=== PATIENT | female | born 1955 | race Caucasian/White ===

== ENCOUNTER → 2020-11-03 15:12 | Outpatient (CLI) | payer BC, SELFPAY ==
--- NOTE | ~2020-11-03 | XR_ITS ---
XR shoulder LT min 2V DATE: 11/03/2020 15:43 INDICATION: Fall. Left shoulder pain. TECHNIQUE: 4 views COMPARISON: 11/09/2006 left shoulder FINDINGS: There is osteopenia. No fracture, dislocation, periosteal reaction or bone destruction. Normal alignment at the acromiocla vicular and glenohumeral joints. No abnormal left shoulder soft tissue calcification. Aortic arch calcification. Degenerative spurring of the mid to lower thoracic spine. IMPRESSION: Osteopenia Reviewed, dictated and finalized at location B. IMPRESSION: Osteopenia
== END ==
PROVIDERS: PCP Family Medicine Adolescent Medicine; Visit Provider Family Medicine Adolescent Medicine
DX: M85.812 Other specified disorders of bone density and structure, left shoulder (principal)
CPT/HCPCS: 73030

== ENCOUNTER → 2021-09-03 09:22 | Outpatient (CLI) | payer BC, SELFPAY ==
--- NOTE | ~2021-09-03 | XR_ITS ---
EXAMINATION: XR elbow LT 2V DATE: 09/03/2021 09:43 INDICATION: Left elbow pain TECHNIQUE: Anteroposterior and lateral views of the left elbow were obtained. COMPARISON: None. FINDINGS: Alignment is normal. No fracture or joint effusion. Mild osteoarthritis with mild nonuniform joint sp ming narrowing at the ulnotrochlear and radiocapitellar articulations. Mild soft tissue swelling poste rior to the proximal forearm an overlying the proximal tip of the olecranon. IMPRESSION: 1. Mild osteoarthritis at the left elbow. No acute osseous abnormality. Reviewed, dictated and finalized at location B.
== END ==
PROVIDERS: PCP Family Medicine Adolescent Medicine; Visit Provider Physician Assistant
DX: M25.522 Pain in left elbow (principal); M19.022 Primary osteoarthritis, left elbow
CPT/HCPCS: 73070

== ENCOUNTER → 2021-10-08 10:00 | Outpatient (CLI) | payer BC, SELFPAY ==
--- NOTE | ~2021-10-08 | XR_ITS ---
EXAMINATION:XR_[id number]_CR DATE: 10/08/2021 10:18 INDICATION: Neck pain TECHNIQUE: AP, lateral, lateral swimmers and odontoid views of the cervical spine are provided. COMPARISON: None FINDINGS: There are 2 mm of retrolisthesis of C2 on C3 and C5 on C6. There are 2 mm of anterolisthesi s of C3 on C4 and 3 mm of anterolisthesis of C4 on C5. The odontoid is intact. No fracture is identif ied. There is severe loss of intervertebral disc space height at C5-6 and C6-7. The vertebral body he ights are maintained. Small degenerative osteophytes project from the anterior endplates of multiple vertebral bodies. There is severe multilevel facet and uncovertebral joint osteoarthritis. Prevertebr al soft tissues are normal. IMPRESSION: 1. Severe cervical spondylosis without acute findings. Reviewed, dictated and finalized at location B.
== END ==
PROVIDERS: PCP Family Medicine Adolescent Medicine; Visit Provider Physician Assistant
DX: M47.892 Other spondylosis, cervical region (principal)
CPT/HCPCS: 72040

== ENCOUNTER 2022-05-07 10:10 | Emergency (ER) | payer BC, SELFPAY ==
--- NOTE | ~2022-05-07 | CT_ITS ---
EXAMINATION: CT brain wo con INDICATION: Headache COMPARISON: None TECHNIQUE: Standard unenhanced head CT. The dose-length product (DLP) was 605.33 mGy-cm. The mA was a djusted according to patient size. Iterative reconstruction technique was employed. FINDINGS: There is no intracranial hemorrhage, acute infarction, or abnormal mass lesion. The ventric les are normal. There is no abnormal mass effect or midline shift. The morris-white matter differentiat ion is normal. The basal cisterns are patent. Intracranial calcified cerebral atherosclerosis is noted. The orbits are normal. The paranasal sinuse s, mastoids and calvarium are normal. IMPRESSION: 1. No acute intracranial abnormality. Reviewed, dictated and finalized at location A. N [employer]NER
--- NOTE | 2022-05-07 10:24 | ED.FALL ---
HPI - Fall General Chief Complaint: Fall Stated Complaint: Fall 04/27/22, Hit Head Time Seen by Provider: 05/07/22 10:16 History of Present Illness HPI Narrative: Patient is a 67-year-old female with a history of hepatitis C, in remission, here for evaluation after a fall 10 days ago. States that she was sitting on the bottom step of her house, when she got up she tripped over a rug on the step, causing her to fall forward and strike her right frontal head against a metal pipe. Patient states that she had a brief episode of seeing stars but is unsure if she lost consciousness. She does not take blood thinners. Patient was feeling okay but the next day did develop some dizziness and frontal headache. She contacted her PCP who recommended meclizine as needed. Meclizine did help with her dizziness but she stopped taking this. Presents to the ED today due to continued dizziness, headaches and some mild nausea. She has not had any unilateral weakness, confusion, altered mental status or seizures. Related Data Home Medications Medication Instructions Recorded Confirmed fluticasone propionate 50 1 spray intranasal BID PRN 09/03/21 04/21/22 mcg/actuation nasal spray,suspension (Flonase Allergy Relief) loratadine 10 mg tablet (Claritin) 10 mg PO DAILY PRN 09/03/21 04/21/22 Allergies Allergy/AdvReac Type Severity Reaction Status Date / Time hydrocodone Allergy Intermediate hives Verified 04/21/22 09:17 aspirin Allergy Unknown Unknown Verified 04/21/22 09:17 codeine Allergy Unknown shortness Verified 04/21/22 09:17 of breath Penicillins Allergy Unknown hives Verified 04/21/22 09:17 tetracycline Allergy Unknown Hives Verified 04/21/22 09:17 cefdinir AdvReac Mild tachycardia Verified 04/21/22 09:17 tramadol Allergy Intermediate Hives Uncoded 04/21/22 09:17 Review of Systems Review of Systems: Gen.: Denies fevers or chills Eyes: Denies eye pain or visual change ENT: Denies congestion Respiratory: Denies shortness of breath or cough CV: Denies chest pain or palpitations GI: Reports nausea. Denies abdominal pain, emesis or diarrhea denies burning, urgency, frequency or hematuria Musculoskeletal: Denies back pain or muscle pain Neuro: Reports headache and dizziness. Skin: Denies rash Except as documented, all other systems reviewed and negative [facility] Surgical History Surgical History History of total hysterectomy Hx of appendectomy Hx of cholecystectomy Hx of hernia repair Family History Family History Mother Family history of chronic obstructive pulmonary disease Family history of congestive heart failure Other Family history of allergic disorder Family history of cardiovascular disease Hypertension Social History Social History Smoking packs per day: 0.5 Smoking cigarettes per day: 10.0 Years smoked: 40 Smoking pack-years: 20.00 Smoking status: Current every day smoker Tobacco type: cigarettes Second hand tobacco smoke exposure: No Alcohol intake: never Substance use: never Substance use type: does not use Living arrangements: with family Occupation/Education: retired Gender identity (if verbalized by the patient): Female Sexual Orientation (if Verbalized by the Patient): Straight or Heterosexual Spiritual care concerns: No Agree to blood products: Yes Exam Narrative: APPEARANCE: Well appearing, no pain in distress, well-nourished. smells of marijuana Head: Normocephalic and atraumatic. EYES: PERRLA/EOMI, conjunctivae clear NOSE: No nasal drainage EARS: External ear normal in appearance THROAT: Oropharynx is clear. Mucous membranes are moist. NECK: Supple. No adenopathy, no masses. RESPIRATORY: Airway patent, respirations nonlabored. Clear to auscultation bilaterally, no rales, rhonc
[2022-05-07 10:30] VITALS: BP 156/92; PULSE 112; RESP 16; TEMP 36.7; O2SAT 99
[2022-05-07 11:43] VITALS: BP 146/88; PULSE 78; RESP 16; O2SAT 98
== END 2022-05-07 11:44 | disposition home or self-care (01) ==
PROVIDERS: Emergency Provider Physician Assistant; PCP Family Medicine Adolescent Medicine
DX: S06.0XAA Concussion with loss of consciousness status unknown, initial encounter (principal); F17.210 Nicotine dependence, cigarettes, uncomplicated; W10.8XXA Fall (on) (from) other stairs and steps, initial encounter
CPT/HCPCS: 70450; 99284

== ENCOUNTER 2024-04-23 14:16 | Outpatient (CLI) | payer BC, SELFPAY ==
--- NOTE | ~2024-04-23 | XR_ITS ---
HISTORY: M79.631 - Pain in right forearm COMPARISON: Remote history of a fall TECHNIQUE: 2 views of the right forearm were performed FINDINGS: No acute or subacute fracture. Joint spaces and alignment are preserved Soft tissues are unremarkable without foreign body or significant calcification. Normal mineralization. IMPRESSION: No acute fracture, as detailed above. Reviewed, dictated and finalized at location A. D [employer] QU[employer]ICATION SPECIALIST
== END 2024-04-23 14:17 | disposition home or self-care (01) ==
LOC: MICIMG 14:17
PROVIDERS: PCP Family Medicine Adolescent Medicine; Visit Provider Nurse Practitioner Family
DX: M79.631 Pain in right forearm (principal)
CPT/HCPCS: 73090

== ENCOUNTER 2024-11-05 09:10 | Emergency (ER) | payer MEDICARE, BC, SELFPAY ==
[2024-11-05 09:26] VITALS: BP 115/70; PULSE 69; RESP 14; TEMP 36.6; O2SAT 97
[2024-11-05 09:35] LABS: EDSTREPNEGPOS1 Negative (Negative)
[2024-11-05 09:42] LABS: EDCOVIDSCREEN Negative (Negative); EDINFLUASCREEN Negative (Negative); EDINFLUBSCREEN Negative (Negative)
--- NOTE | 2024-11-05 09:58 | ED_ITS ---
HPI - General Adult General Chief complaint: Upper Respiratory Infection Stated complaint: body aches/fever Source: patient Mode of arrival: ambulatory Limitations: no limitations History of Present Illness HPI narrative: Patient presents for evaluation of sick symptoms. Four days ago she was experiencing body aches, which have persisted since that time. She had diarrhea, but that has improved. She has experienced fevers and a productive cough of green sputum. She denies any SOB, nausea or vomiting. No recent sick contacts to her knowledge. She has been taking tylenol and claritin for her symptoms. She smokes 1/2 ppd. Related Data Home Medications ?Medication ?Instructions ?Recorded ?Confirmed ?Last Taken ?Type fluticasone propionate 50 1 spray intranasal BID PRN 09/03/21 04/23/24 Unknown History mcg/actuation nasal spray,suspension (Flonase Allergy Relief) loratadine 10 mg tablet (Claritin) 10 mg PO DAILY PRN 09/03/21 04/23/24 Unknown History multivitamin 1 tablet PO DAILY 11/20/23 04/23/24 Unknown History Allergies Allergy/AdvReac Type Severity Reaction Status Date / Time hydrocodone Allergy Intermediate hives Verified 11/05/24 09:24 aspirin Allergy Unknown Unknown Verified 11/05/24 09:24 codeine Allergy Unknown shortness Verified 11/05/24 09:24 of breath Penicillins Allergy Unknown hives Verified 11/05/24 09:24 tetracycline Allergy Unknown Hives Verified 11/05/24 09:24 cefdinir AdvReac Mild tachycardia Verified 11/05/24 09:24 tramadol Allergy Intermediate Hives Uncoded 11/05/24 09:24 Review of Systems Review of Systems: CONSTITUTIONAL: Reports fever. Denies chills, or sweats. EYES: Denies visual changes, redness, or discharge. ENT: Denies sore throat or otalgia CARDIOVASCULAR: Denies chest pain, palpitations, or edema. RESPIRATORY: Reports cough. Denies dyspnea. GASTROINTESTINAL: Reports recent diarrhea, since resolved. Denies abdominal pain, nausea, vomiting. GENITOURINARY: Denies dysuria or hematuria. SKIN: Denies rash or itching. MUSCULOSKELETAL: Reports generalized body aches NEUROLOGIC: Denies headache, numbness, dizziness, or weakness. PSYCHIATRIC: Denies anxiety or depression. [facility] Past Medical History Medical History Tobacco use Surgical History Surgical History Hx of appendectomy Hx of hernia repair Hx of cholecystectomy History of total hysterectomy Family History Family History Mother Family history of chronic obstructive pulmonary disease Family history of congestive heart failure Other Family history of allergic disorder Family history of cardiovascular disease Hypertension Social History Social History Smoking packs per day: 0.5 Smoking cigarettes per day: 10.0 Years smoked: 40 Smoking pack-years: 20.00 Smoking status: Current every day smoker Tobacco type: cigarettes Second hand tobacco smoke exposure: No Alcohol intake: never Substance use: never Substance use type: does not use Living arrangements: with family Occupation/Education: retired Gender identity (if verbalized by the patient): Female Sexual Orientation (if Verbalized by the Patient): Straight or Heterosexual Spiritual care concerns: No Agree to blood products: Yes Exam Narrative: GENERAL: Well-appearing, well-nourished, and in no acute distress. HEAD: Normocephalic, atraumatic. EYES: PERRLA and EOMI. ENT: Nares clear, no rhinorrhea or epistaxis. Mucous membranes moist. Oropharynx without tonsillar hypertrophy exudate or other lesions. Bilateral TMs pearly morris nonbulging NECK: Supple. No adenopathy or masses. No carotid bruits or JVD CHEST: Clear to auscultation. No respiratory distress. No wheezes rales or rhonchi HEART: Regular rate and rhythm. No murmur heard. Normal peripheral pulses. ABDOMEN: Soft, nontender, nondistended, normal active bowel sounds. EXTREMITIES: Normal range of motion. No edema. SKIN: Warm, dry, no rash. NEURO: No focal deficits. Alert and oriented x3. PSYCH: Normal mood and affect. Course Course Emergency Course: This is a 69 year old female who presented for evaluation of sick symptoms. COVID, flu and strep were negative. I offered her CXR. which she declined. I think this is reasonable as she has no adventitious lung sounds. I advised her symptoms are most consistent with acute viral syndrome. I advised that abx do not help viral infections. She did not seem happy with this. I recommended she take OTC meds for symptom management and increase fluid intake. She should follow up with primary provider. Go to the ER for worsening symptoms. Pt in agreement with plan of care. Level of Care: Express Care Visit Vital Signs Vital signs: Vital Signs Temperature 36.6 C 11/05/24 09:26 Pulse Rate 69 11/05/24 09:26 Respiratory Rate 14 11/05/24 09:26 Blood Pressure 115/70 11/05/24 09:26 Pulse Oximetry 97 11/05/24 09:26 Oxygen Delivery Room Air 11/05/24 09:26 Temperature 36.6 C 11/05/24 09:26 Pulse Rate 69 11/05/24 09:26 Respiratory Rate 14 11/05/24 09:26 Blood Pressure 115/70 11/05/24 09:26 Pulse Oximetry 97 11/05/24 09:26 Oxygen Delivery Room Air 11/05/24 09:26 Medical Decision Making Vital Signs Vital Signs: Vital Signs Temperature 36.6 C 11/05/24 09:26 Pulse Rate 69 11/05/24 09:26 Respiratory Rate 14 11/05/24 09:26 Blood Pressure 115/70 11/05/24 09:26 Pulse Oximetry 97 11/05/24 09:26 Oxygen Delivery Room Air 11/05/24 09:26 Temperature 36.6 C 11/05/24 09:26 Pulse Rate 69 11/05/24 09:26 Respiratory Rate 14 11/05/24 09:26 Blood Pressure 115/70 11/05/24 09:26 Pulse Oximetry 97 11/05/24 09:26 Oxygen Delivery Room Air 11/05/24 09:26 Lab Data Labs: Lab Results 11/05/24 11/05/24 Range/Units 09:33 09:40 POC Influenza A Ag Negative (Negative) POC Influenza B Ag Negative (Negative) POC SARS CoV-2 Ag Negative (Negative) POC Grp A Strep Screen Negative (Negative) Discharge Plan Discharge Clinical Impression: Acute viral syndrome Patient Disposition: Home Condition: Stable Instructions: Antibiotic Form, Viral Syndrome (ED) Additional Instructions: DELSYM (DEXTROMETHORPHAN) SHOULD HELP WITH COUGH YOU MAY CONTINUE TO TAKE TYLENOL AND DICLOFENAC SHOULD HELP WITH BODY ACHES DRINK PLENTY OF FLUIDS AND GET REST GO TO THE ER FOR WORSENING SYMPTOM Patient Language: Setswana Prescriptions: No Action lidocaine HCl [Aspercreme (lidocaine HCl)] 4 % cream 1 applic topical TID PRN (Reason: pain) Qty: 120 0RF loratadine [Claritin] 10 mg tablet 10 mg PO DAILY PRN fluticasone propionate [Flonase Allergy Relief] 50 mcg/actuation spray,suspension 1 spray intranasal BID PRN Rx Instructions: administer into each nostril multivitamin Tablet 1 tablet PO DAILY diclofenac sodium 75 mg tablet,delayed release (DR/EC) 75 mg PO BID Qty: 180 3RF lisinopril 20 mg tablet 20 mg PO DAILY Qty: 30 5RF Follow-up/Referrals: Garth Lipscomb MD [Primary Care Provider] - Time of Disposition: 09:55
== END 2024-11-05 10:04 | disposition home or self-care (01) ==
PROVIDERS: Emergency Provider Nurse Practitioner; PCP Family Medicine Adolescent Medicine
DX: B34.9 Viral infection, unspecified (principal); Z20.822 Contact with and (suspected) exposure to COVID-19; F17.210 Nicotine dependence, cigarettes, uncomplicated
CPT/HCPCS: 87081; 87426; 87804; 87880; 99213; G0463

== ENCOUNTER 2024-11-07 12:47 | Emergency (ER) | payer MEDICARE, BC, SELFPAY ==
--- NOTE | ~2024-11-07 | XR_ITS ---
XR chest 2V 11/07/2024 13:19 Indication: Shortness of breath and cough Procedure: 2 view chest Comparison: 03/13/2013 Findings: There is right lower lobe pneumonia. No significant effusion. Heart size normal. No pneumot horax. The lungs are hyperinflated which is consistent with, but not diagnostic of chronic obstructiv e pulmonary disease. Impression: 1: Right lower lobe pneumonia. Reviewed, dictated and finalized at location A. Impression: 1: Right lower lobe pneumonia.
--- NOTE | 2024-11-07 12:51 | ED_ITS ---
HPI - URI/Sore Throat General Chief Complaint: Upper Respiratory Infection Stated Complaint: SOB/Cough Time Seen by Provider: 11/07/24 12:48 Source: patient Mode of arrival: ambulatory Limitations: no limitations History of Present Illness HPI Narrative: Patient is a 69-year-old female who presents with shortness of breath and cough. Patient was seen and evaluated here 2 days ago for similar symptoms, still havi ng some blood streaks in mucous. Patient states cough is still persistent but has not had any fever, chills, nausea, vomiting, diarrhea. Patient has taken Delsym intermittently but has taken none today. Patient called PCP and had blood work ordered. Patient is a current everyday smoker. Related Data Home Medications ?Medication ?Instructions ?Recorded ?Confirmed ?Last Taken ?Type fluticasone propionate 50 1 spray intranasal BID PRN nasal 09/03/21 11/07/24 Unknown History mcg/actuation nasal congestion spray,suspension (Flonase Allergy Relief) loratadine 10 mg tablet (Claritin) 10 mg PO DAILY PRN allergy symptoms 09/03/21 11/07/24 Unknown History Allergies Allergy/AdvReac Type Severity Reaction Status Date / Time hydrocodone Allergy Intermediate hives Verified 11/07/24 13:10 aspirin Allergy Unknown hives Verified 11/07/24 13:10 codeine Allergy Unknown shortness Verified 11/07/24 13:10 of breath Penicillins Allergy Unknown hives Verified 11/07/24 13:10 tetracycline Allergy Unknown Swelling Verified 11/07/24 13:10 cefdinir AdvReac Mild tachycardia Verified 11/07/24 13:10 tramadol Allergy Intermediate Hives Uncoded 11/07/24 13:10 Review of Systems Review of Systems: All systems reviewed & are unremarkable except as noted in HPI and below Constitutional: Constitutional: Denies chills, Denies fatigue, Denies fever(s) , Denies headache(s), Denies malaise and Denies weakness Eyes: Eyes: Denies blurry vision, Denies itchy eyes and Denies loss of vision ENT: Denies otalgia, Denies headache(s), Denies nasal congestion, Denies sinus pain and Denies sore throat Cardiovascular: Cardiovascular: Denies chest pain, Denies irregular heart rhythm and Denies dyspnea Respiratory: Respiratory: Reports cough and Reports dyspnea on exertion Gastrointestinal: Gastrointestinal: Denies abdominal pain, Denies diarrhea, Denies nausea and Denies vomiting Musculoskeletal: Musculoskeletal: Denies back pain, Denies myalgias and Denies arthralgias Integumentary/Breasts: Skin/Breast: Denies pruritus and Denies rash Neurologic: Denies headache(s), Denies loss of vision and Denies weakness Psychiatric: Psychiatric: Reports no additional psychiatric complaints Endocrine: Endocrine: Denies fatigue Allergic/Immunologic: Allergic/Immunologic: Denies itchy eyes PMFSH Past Medical History Medical History Tobacco use Surgical History Surgical History Hx of appendectomy Hx of hernia repair Hx of cholecystectomy History of total hysterectomy Family History Family History Mother Family history of chronic obstructive pulmonary disease Family history of congestive heart failure Other Family history of allergic disorder Family history of cardiovascular disease Hypertension Social History Social History Smoking packs per day: 0.5 Smoking cigarettes per day: 10.0 Years smoked: 40 Smoking pack-years: 20.00 Smoking status: Current every day smoker Tobacco type: cigarettes Second hand tobacco smoke exposure: No Alcohol intake: never Substance use: never Substance use type: does not use Living arrangements: with family Occupation/Education: retired Gender identity (if verbalized by the patient): Female Sexual Orientation (if Verbalized by the Patient): Straight or Heterosexual Spiritual care concerns: No Agree to blood products: Yes Comments At time of signature, agree with nursing past medical, surgical, social and family history. There is no relevant family history pertinent to the presenting complaint. Exam Const: General: cooperative, healthy appearing, comfortable, no acute distress and well nourished Nutritional Appearance: well nourished Orientation/consciousness: patient oriented x3 Limitations: no limitations HENMT: Head: normal to inspection, normocephalic and atraumatic Ears: hearing grossly normal bilaterally, external ears normal, TM's normal bilaterally, EAC's normal and no periauricular adenopathy Face/Nose/Sinus: Normal external nose present, Abnormal mucous membranes and turbinates present erythematous bilateral and diffuse, normal facial exam, sinuses nontender and face symmetric Face and sinus: normal facial exam, sinuses nontender and face symmetric Mouth: Yes Normal oral and palatal mucosa present, Yes lip normal, Yes tongue normal, Yes Normal salivary glands and ducts present, Yes oropharynx normal and Yes moist mucous membranes Teeth and gingiva: dentition normal Throat: posterior oropharynx normal, tonsils normal and uvula midline Eyes: General: appearance normal, both eyes and all related structures Alignment and Position: alignment normal and position normal Periorbital: periorbital findings normal Eyelids: eyelids normal Pupils: Equal, round and reactive pupils present Neck: Neck: normal visual inspection, full ROM, no lymphadenopathy and supple Chest: Chest palpation & inspection: normal inspection of the chest and normal palpation of entire chest wall Resp: Effort & Inspection: normal respiratory effort and able to speak in complete sentences Auscultation: clear to auscultation bilaterally, no crackles, no rales, no rhonchi and no wheezes Cardio: Rate: tachycardic Rhythm: regular rhythm Heart sounds: S1 normal heart sound present and S2 normal heart sound present GI: Inspection: normal to inspection Skin: General skin exam: normal color and no rashes or lesions noted Neuro: General: patient oriented x3 and moves all extremities Cranial nerves: Yes Equal, round and reactive pupils present Speech: normal speech Gait exam (Neuro): Normal gait present Extrem: General: normal to inspection, full ROM and no edema Psych: Appearance: grossly normal and well kempt Mental Status: mental status grossly normal Speech and movement: Normal speech and movement present Affect: normal affect Attitude: cooperative Thought process: Normal thought process present Course Course Emergency Course: Discharge instructions reviewed with patient, as well as provided in writing per nursing staff. The instructions also include specific and strict return/GO TO THE ER as well as f/u information. All questions have been answered, and the patient deny any further questions with discharge and discharge plan. Portions of this record may have been created with voice recognition software Level of Care: Express Care Visit Vital Signs Vital signs: Reviewed MDM - URI/Sore Throat MDM Narrative Medical decision making narrative: Patient was negative for COVID, flu, strep throat 2 days ago. Will order chest x-ray- shows pneumonia. Will treat with antibiotics, steroids, albuterol inhaler and Tessalon Perles. Pt well hydrated appearing, in no respiratory distress, hemodynamically stable. Recommend supportive care. The patient is stable at time of discharge the clinical impression was discussed and the patient was given the opportunity to ask questions, which were addressed as completely as possible given the information available at present. Anticipatory guidance and return to care precautions were discussed and the importance of primary care follow-up was stressed and encouraged. The patient voiced understanding of the plan, indications to return, and the need for follow-up. Exam findings show no acute concerns or changes Patient is appropriate for outpatient treatment and follow-up. Differential diagnosis considered: Plascencia virus, strep pharyngitis, allergic rhinitis, upper respiratory tract infection, sinusitis, rhinosinusitis, nasopharyngitis. viral pharyngitis, otitis media, otitis externa, otitis effusion, foreign body, cerumen impaction, viral syndrome, and influenza.? Medical Records Attestation: I reviewed the patient's medical records. Imaging Data Radiologist's impression: XR chest 2V 11/07/2024 13:19 Indication: Shortness of breath and cough Procedure: 2 view chest Comparison: 03/13/2013 Findings: There is right lower lobe pneumonia. No significant effusion. Heart size normal. No pneumothorax. The lungs are hyperinflated which is consistent with, but not diagnostic of chronic obstructive pulmonary disease. Impression: 1: Right lower lobe pneumonia. Discharge Plan Discharge Clinical Impression: Pneumonia Qualifiers: Pneumonia type: due to unspecified organism Laterality: right Lung location: lower lobe of lung Qualified Code(s): J18.9 - Pneumonia, unspecified organism Patient Disposition: Home Condition: Stable Instructions: Bacterial Pneumonia (ED) Additional Instructions: Pneumonia is a lung infection that can cause a fever, cough, and trouble breathing. Please continue all antibiotics as directed until complete. Nutrition is important - eat small frequent meals. Get lots of rest and drink fluids. Take antibiotic as prescribed. Take steroids per package instructions. Use Tessalon Perles as needed for cough. Use inhaler with spacer as needed. Other symptomatic treatments include: -Alternate Tylenol and Motrin per package directions for fever or pain: Tylenol 650-1000mg by mouth every 4-6 hours. Do not exceed 4000mg in 24 hours. Advil (Ibuprofen) 600 mg by mouth every 6 hours. Do not exceed 2400mg in 24 hours. 8 AM: Tylenol 11 AM: Ibuprofen 2 PM: Tylenol 5 PM: Ibuprofen 8 PM: Tylenol 11 PM: Ibuprofen 2 AM: Tylenol 5 AM: Ibuprofen -Antihistamine medication such as Claritin during the day can help improve symptoms. -Use Flonase twice a day for 5 days then daily to help reduce the inflammation and dry up your sinuses. -Eat and drink things that are easy to swallow, like tea or soup, or popsicles. -Oral rinses such as: Salt water gargles and/or may use topical anesthetic (eg. Chloraseptic spray) or lozenges to relieve dryness or throat pain). -Frequent hand washing or hand coagulating bath mixer is one of the best ways to prevent spread of infection. -Using a vaporizer or humidifier at night will also help thin secretions and help with coughing up phlegm. Call your Primary Care Doctor and make a follow-up appointment in 3 days. If your cough worsens, you develop a fever greater than 103, you develop shaking chills, a fast heartbeat, trouble breathing and/or feel you are are breathing much faster than usual, call your Primary Care Doctor or go to the ER. Make sure you wash your hands frequently. Patient Language: Dutch Prescriptions: New benzonatate 100 mg capsule 100 mg PO BID PRN (Reason: cough) Qty: 14 0RF albuterol sulfate 90 mcg/actuation HFA aerosol inhaler 2 puff inhalation QID PRN (Reason: shortness of breath or wheezing) Qty: 6.7 0RF (DME) Aerochamber MV Spacer See Rx Instructions .Route Qty: 1 0RF Rx Instructions: As directed levofloxacin 750 mg tablet 750 mg PO DAILY 5 Days Qty: 5 0RF methylprednisolone [Medrol (Sundar)] 4 mg tablets,dose pack See Rx Instructions .ROUTE .COMPLEX Qty: 21 0RF Rx Instructions: orally per package directions No Action loratadine [Claritin] 10 mg tablet 10 mg PO DAILY PRN (Reason: allergy symptoms) fluticasone propionate [Flonase Allergy Relief] 50 mcg/actuation spray,suspension 1 spray intranasal BID PRN (Reason: nasal congestion) Rx Instructions: administer into each nostril diclofenac sodium 75 mg tablet,delayed release (DR/EC) 75 mg PO BID Qty: 180 3RF lisinopril 20 mg tablet 20 mg PO DAILY Qty: 30 5RF Follow-up/Referrals: Garth Lipscomb MD [Primary Care Provider] - 3 Days Time of Disposition: 13:34
[2024-11-07 12:56] VITALS: BP 139/77; PULSE 110; RESP 16; TEMP 37.3; O2SAT 97
== END 2024-11-07 13:45 | disposition home or self-care (01) ==
PROVIDERS: Emergency Provider Nurse Practitioner Family; PCP Family Medicine Adolescent Medicine
DX: J18.9 Pneumonia, unspecified organism (principal); F17.210 Nicotine dependence, cigarettes, uncomplicated
CPT/HCPCS: 71046; 99213; G0463

== ENCOUNTER 2024-12-03 13:17 | Emergency (ER) | payer MEDICARE, BC, SELFPAY ==
--- NOTE | ~2024-12-03 | XR_ITS ---
EXAM/ PROCEDURE: XR ribs LT 2V - 12/03/2024 13:51 CDT HISTORY: 69 years old Female with LT side/rib pain 3x days after twisting/sneezing COMPARISON: None available TECHNIQUE: Three view(s) FINDINGS/ IMPRESSION: There are no fractures or dislocations.Mild degenerative changes. Atherosclerotic calcifications are seen. Reviewed, dictated and finalized at location N.
[2024-12-03 13:23] VITALS: BP 143/78; PULSE 108; RESP 16; TEMP 37.6; O2SAT 97
--- NOTE | 2024-12-03 14:07 | ED.GENADULT ---
HPI - General Adult General Chief complaint: Unspecified Stated complaint: Stomach Pain Time Seen by Provider: 12/03/24 14:08 Source: patient Mode of arrival: ambulatory Limitations: no limitations History of Present Illness HPI narrative: 69-year-old female presented for complaint of left lower rib pain. Onset yesterday. She states she twisted while sneezing and hurt the rib at that time. Patient takes diclofenac and Tylenol for chronic pain. Denies shortness of breath, wheezing, hemoptysis, nausea, vomiting or lethargy. Related Data Home Medications ?Medication ?Instructions ?Recorded ?Confirmed ?Last Taken ?Type fluticasone propionate 50 1 spray intranasal BID PRN nasal 09/03/21 11/14/24 Unknown History mcg/actuation nasal congestion spray,suspension (Flonase Allergy Relief) loratadine 10 mg tablet (Claritin) 10 mg PO DAILY PRN allergy symptoms 09/03/21 11/14/24 Unknown History Allergies Allergy/AdvReac Type Severity Reaction Status Date / Time hydrocodone Allergy Intermediate hives Verified 12/03/24 13:21 aspirin Allergy Unknown hives Verified 12/03/24 13:21 codeine Allergy Unknown shortness Verified 12/03/24 13:21 of breath Penicillins Allergy Unknown hives Verified 12/03/24 13:21 tetracycline Allergy Unknown Swelling Verified 12/03/24 13:21 cefdinir AdvReac Mild tachycardia Verified 12/03/24 13:21 tramadol Allergy Intermediate Hives Uncoded 12/03/24 13:21 Review of Systems Review of Systems: CONSTITUTIONAL: Denies body aches, fever, chills, or sweats. CARDIOVASCULAR: Denies chest pain, palpitations, or edema. RESPIRATORY: Denies cough or dyspnea. GASTROINTESTINAL: Denies abdominal pain, nausea, vomiting, or diarrhea. SKIN: Denies rash, wounds. MUSCULOSKELETAL: Reports left lower rib pain Denies back pain, joint pain, or myalgia. NEUROLOGIC: Denies headache All systems reviewed & are unremarkable except as noted in HPI and below PMFSH Past Medical History Medical History Tobacco use Surgical History Surgical History Hx of appendectomy Hx of hernia repair Hx of cholecystectomy History of total hysterectomy Family History Family History Mother Family history of chronic obstructive pulmonary disease Family history of congestive heart failure Other Family history of allergic disorder Family history of cardiovascular disease Hypertension Social History Social History Smoking packs per day: 0.5 Smoking cigarettes per day: 10.0 Years smoked: 40 Smoking pack-years: 20.00 Smoking status: Current every day smoker Tobacco type: cigarettes Second hand tobacco smoke exposure: No Alcohol intake: never Substance use: never Substance use type: does not use Living arrangements: with family Occupation/Education: retired Gender identity (if verbalized by the patient): Female Sexual Orientation (if Verbalized by the Patient): Straight or Heterosexual Spiritual care concerns: No Agree to blood products: Yes Comments At time of signature, I have reviewed and agree with nursing past medical, surgical, social and family history unless otherwise noted. Please see nursing chart for further information. There is no relevant family history pertinent to the presenting complaint Exam Narrative: GENERAL: Well-appearing EYES: EOMI. No redness or drainage. Conjunctivae normal. ENT: Mucous membranes pink and moist. CHEST: No respiratory distress. Clear to auscultation. HEART: Regular rate and rhythm. No murmur appreciated. Normal peripheral pulses. ABDOMEN: Soft, nontender, nondistended, normal active bowel sounds. MUSCULOSKELETAL: left lower lateral rib #10 tender with palpation, no bruising or erythema no step-off EXTREMITIES: Normal range of motion. No edema. SKIN: Warm, dry, no rash. Capillary refill normal. Normal skin turgor. NEURO: No focal deficits. Alert and oriented x3. PSYCH: Normal affect. Course Course Emergency Course: Patient is aware of diagnosis, understands and agrees to treatment plan. Anticipatory guidance given. Patient agrees to follow-up as directed and is aware of reasons to seek care at the emergency department. Portions of this record may have been created with voice recognition software Level of Care: Express Care Visit Vital Signs Vital signs: Vital Signs Temperature 99.6 F 12/03/24 13:23 Pulse Rate 108 H 12/03/24 13:23 Respiratory Rate 16 12/03/24 13:23 Blood Pressure 143/78 H 12/03/24 13:23 Pulse Oximetry 97 12/03/24 13:23 Oxygen Delivery Room Air 12/03/24 13:23 Temperature 99.6 F 12/03/24 13:23 Pulse Rate 108 H 12/03/24 13:23 Respiratory Rate 16 12/03/24 13:23 Blood Pressure 143/78 H 12/03/24 13:23 Pulse Oximetry 97 12/03/24 13:23 Oxygen Delivery Room Air 12/03/24 13:23 Medical Decision Making MDM Narrative Medical decision making narrative: Discussed physical exam findings and x-ray. Advised supportive measures and signs/symptoms to go to the ER. Pt is appropriate for outpt treatment and f/u. Differential Diagnosis Differential Diagnosis: rib fracture, contusion Vital Signs Vital Signs: Vital Signs Temperature 99.6 F 12/03/24 13:23 Pulse Rate 108 H 12/03/24 13:23 Respiratory Rate 16 12/03/24 13:23 Blood Pressure 143/78 H 12/03/24 13:23 Pulse Oximetry 97 12/03/24 13:23 Oxygen Delivery Room Air 12/03/24 13:23 Temperature 99.6 F 12/03/24 13:23 Pulse Rate 108 H 12/03/24 13:23 Respiratory Rate 16 12/03/24 13:23 Blood Pressure 143/78 H 12/03/24 13:23 Pulse Oximetry 97 12/03/24 13:23 Oxygen Delivery Room Air 12/03/24 13:23 reviewed Imaging Data Radiologist's impression: Patient: Erica Ferrari : 1955 MR#: [id number] Age: 69 Acct:[id number] Loc: [facility] ADM Date: 12/03/24Attending Dr: EXAM/ PROCEDURE: XR ribs LT 2V - 12/03/2024 13:51 CDT HISTORY: 69 years old Female with LT side/rib pain 3x days after twisting/sneezing COMPARISON: None available TECHNIQUE: Three view(s) FINDINGS/ IMPRESSION: There are no fractures or dislocations.Mild degenerative changes. Atherosclerotic calcifications are seen. Discharge Plan Discharge Clinical Impression: Rib pain on left side Patient Disposition: Home Condition: Stable Instructions: Antibiotic Form, Rib Contusion (ED) Additional Instructions: Rest. Avoid pushing, pulling, lifting or anything that worsens the symptoms Tylenol 1000mg every 8 hours as needed Continue diclofenac Alternate ice/heat to the site. Lidocaine or salon pas pain patch or use pain cream like icy/hot or biofreeze. Follow up with your primary care provider as needed in 1 week Go to the ER for worsening symptoms or concerns Patient Language: Salvadorean Prescriptions: No Action (DME) Aerochamber MV Spacer See Rx Instructions .Route Qty: 1 0RF Rx Instructions: As directed levalbuterol tartrate [Xopenex HFA] 45 mcg/actuation HFA aerosol inhaler 2 inh inhalation Q6H Qty: 15 0RF loratadine [Claritin] 10 mg tablet 10 mg PO DAILY PRN (Reason: allergy symptoms) fluticasone propionate [Flonase Allergy Relief] 50 mcg/actuation spray,suspension 1 spray intranasal BID PRN (Reason: nasal congestion) Rx Instructions: administer into each nostril diclofenac sodium 75 mg tablet,delayed release (DR/EC) 75 mg PO BID Qty: 180 3RF lisinopril 20 mg tablet 20 mg PO DAILY Qty: 30 5RF Follow-up/Referrals: Garth Lipscomb MD [Primary Care Provider, Family Practice]
== END 2024-12-03 14:54 | disposition home or self-care (01) ==
PROVIDERS: Emergency Provider Nurse Practitioner Family; PCP Family Medicine Adolescent Medicine
DX: R07.89 Other chest pain (principal); F17.210 Nicotine dependence, cigarettes, uncomplicated; Z90.710 Acquired absence of both cervix and uterus
CPT/HCPCS: 71100; 99213; G0463

== ENCOUNTER 2024-12-11 18:48 | Emergency (ER) | payer MEDICARE, BC, SELFPAY ==
[2024-12-11 19:05] VITALS: BP 134/84; PULSE 106; RESP 18; TEMP 37.4; O2SAT 98
--- NOTE | 2024-12-11 19:41 | ED.ANIMALBIT ---
HPI - Animal Bite General Chief Complaint: Animal Bite Stated Complaint: squirrel bite Time Seen by Provider: 12/11/24 19:41 Source: patient Mode of arrival: ambulatory Limitations: no limitations History of Present Illness HPI narrative: 69 yo F presents with squirrel bite to R index finger. Tried to help squirrel that a cat was holding in it's mouth. Helped squirrel up into tree and then it bit her. Injury happend this AM. Pt states she noticed redness and swelling to finger tonight. ROM and distal NV intact. All systems reviewed and negative except as noted above. Related Data Home Medications ?Medication ?Instructions ?Recorded ?Confirmed ?Last Taken ?Type fluticasone propionate 50 1 spray intranasal BID PRN nasal 09/03/21 11/14/24 Unknown History mcg/actuation nasal congestion spray,suspension (Flonase Allergy Relief) loratadine 10 mg tablet (Claritin) 10 mg PO DAILY PRN allergy symptoms 09/03/21 11/14/24 Unknown History Allergies Allergy/AdvReac Type Severity Reaction Status Date / Time hydrocodone Allergy Intermediate hives Verified 12/11/24 19:21 aspirin Allergy Unknown hives Verified 12/11/24 19:21 codeine Allergy Unknown shortness Verified 12/11/24 19:21 of breath Penicillins Allergy Unknown hives Verified 12/11/24 19:21 tetracycline Allergy Unknown Swelling Verified 12/11/24 19:21 cefdinir AdvReac Mild tachycardia Verified 12/11/24 19:21 tramadol Allergy Intermediate Hives Uncoded 12/03/24 13:21 PMFSH Past Medical History Medical History Tobacco use Surgical History Surgical History Hx of appendectomy Hx of hernia repair Hx of cholecystectomy History of total hysterectomy Family History Family History Mother Family history of chronic obstructive pulmonary disease Family history of congestive heart failure Other Family history of allergic disorder Family history of cardiovascular disease Hypertension Social History Social History Smoking packs per day: 0.5 Smoking cigarettes per day: 10.0 Years smoked: 40 Smoking pack-years: 20.00 Smoking status: Current every day smoker Tobacco type: cigarettes Second hand tobacco smoke exposure: No Alcohol intake: never Substance use: never Substance use type: does not use Living arrangements: with family Occupation/Education: retired Gender identity (if verbalized by the patient): Female Sexual Orientation (if Verbalized by the Patient): Straight or Heterosexual Spiritual care concerns: No Agree to blood products: Yes Comments At time of signature, agree with nursing past medical, surgical, social and family history. There is no relevant family history pertinent to the presenting complaint. Exam Narrative: GENERAL: This is a well-nourished, well-developed patient, in no apparent distress. HEAD: normocephalic, atraumatic. EYES: PERRL. Sclera clear/white. Vision is grossly intact. EARS: External ears normal NOSE: External nose normal NECK: Neck supple, non-tender without lymphadenopathy, masses or thyromegaly. CARDIOVASCULAR: Regular rate and rhythm without murmurs, gallops, or rubs. RESPIRATORY: Clear to auscultation. Breath sounds equal bilaterally. No wheezes, rales, or rhonchi. SKIN: warm, Dry, intact with no suspicious lesions or rash, good texture and turgor. puncture wound to palmar aspect R index finger middle phalanx with mild erythema and swelling. ROM and distal NV intact. no drainage. NEURO: awake, alert, and oriented to person, place and time. There were no obvious focal neurologic abnormalities. EXTREMITIES: No joint tenderness, effusion, or edema noted. Course Course Level of Care: Express Care Visit Vital Signs Vital signs: Vital Signs Temperature 37.4 C 12/11/24 19:05 Pulse Rate 106 H 12/11/24 19:05 Respiratory Rate 18 12/11/24 19:05 Blood Pressure 134/84 12/11/24 19:05 Pulse Oximetry 98 12/11/24 19:05 Oxygen Delivery Room Air 12/11/24 19:05 Temperature 37.4 C 12/11/24 19:05 Pulse Rate 106 H 12/11/24 19:05 Respiratory Rate 18 12/11/24 19:05 Blood Pressure 134/84 12/11/24 19:05 Pulse Oximetry 98 12/11/24 19:05 Oxygen Delivery Room Air 12/11/24 19:05 reviewed MDM - Animal Bite MDM Narrative Medical decision making narrative: will treat infected squirrel bite with clindamycin and bactrim DS due to pts' PCN allergy. updated tetanus. Differential Diagnosis Differential diagnosis: Likely bite by animal Discharge Plan Discharge Clinical Impression: Animal bite of index finger Qualifiers: Encounter type: initial encounter Qualified Code(s): S61.258A - Open bite of other finger without damage to nail, initial encounter Patient Disposition: Home Condition: Stable Instructions: Antibiotic Form Additional Instructions: Take antibiotics as prescribed until gone. Take tylenol every 6 to 8 hours as needed for pain. See your doctor if swelling and redness not improving. Patient Language: Yakut Prescriptions: New clindamycin HCl [Cleocin HCl] 300 mg capsule 300 mg PO Q8H 10 Days Qty: 30 0RF sulfamethoxazole-trimethoprim [Bactrim DS] 800-160 mg tablet 1 tablet PO Q12H 10 Days Qty: 20 0RF No Action (DME) Aerochamber MV Spacer See Rx Instructions .Route Qty: 1 0RF Rx Instructions: As directed levalbuterol tartrate [Xopenex HFA] 45 mcg/actuation HFA aerosol inhaler 2 inh inhalation Q6H Qty: 15 0RF loratadine [Claritin] 10 mg tablet 10 mg PO DAILY PRN (Reason: allergy symptoms) fluticasone propionate [Flonase Allergy Relief] 50 mcg/actuation spray,suspension 1 spray intranasal BID PRN (Reason: nasal congestion) Rx Instructions: administer into each nostril diclofenac sodium 75 mg tablet,delayed release (DR/EC) 75 mg PO BID Qty: 180 3RF lisinopril 20 mg tablet 20 mg PO DAILY Qty: 30 5RF Follow-up/Referrals: Garth Lipscomb MD [Primary Care Provider, [facility]] Time of Disposition: 19:47
[2024-12-11] MEDS: TETANUS/DIPHTHERIA TOXOIDS ADSORB 0.5 ML SYRINGE (*BKC) IM (19:50)
== END 2024-12-11 20:00 | disposition home or self-care (01) ==
PROVIDERS: Emergency Provider Nurse Practitioner Family; PCP Family Medicine Adolescent Medicine
DX: S61.230A Puncture wound without foreign body of right index finger without damage to nail, initial encounter (principal); W53.21XA Bitten by squirrel, initial encounter; Z23 Encounter for immunization; F17.210 Nicotine dependence, cigarettes, uncomplicated
CPT/HCPCS: 90471; 90714; 99213; G0463

== ENCOUNTER 2025-01-18 12:56 | Emergency (ER) | payer MEDICARE, BC, SELFPAY ==
--- NOTE | 2025-01-18 12:58 | ED.FEMALEGU ---
HPI - Female Genitourinary General Chief complaint: Urogenital-Female Stated complaint: UTI Time Seen by Provider: 01/18/25 12:58 Source: patient Mode of arrival: ambulatory Limitations: no limitations History of Present Illness HPI Narrative: Patient is a 69-year-old female who presents with 3 days of urinary frequency, hesitancy and burning. Denies any fever, chills, nausea vomiting, diarrhea, low back pain. Patient was on clindamycin and Bactrim 1 month ago MD elicited complaint: dysuria Related Data Home Medications ?Medication ?Instructions ?Recorded ?Confirmed ?Last Taken ?Type fluticasone propionate 50 1 spray intranasal BID PRN nasal 09/03/21 11/14/24 Unknown History mcg/actuation nasal congestion spray,suspension (Flonase Allergy Relief) loratadine 10 mg tablet (Claritin) 10 mg PO DAILY PRN allergy symptoms 09/03/21 11/14/24 Unknown History Allergies Allergy/AdvReac Type Severity Reaction Status Date / Time hydrocodone Allergy Intermediate hives Verified 01/18/25 13:08 aspirin Allergy Unknown hives Verified 01/18/25 13:08 codeine Allergy Unknown shortness Verified 01/18/25 13:08 of breath Penicillins Allergy Unknown hives Verified 01/18/25 13:08 tetracycline Allergy Unknown Swelling Verified 01/18/25 13:08 clindamycin AdvReac Intermediate bloating Verified 01/18/25 13:08 cefdinir AdvReac Mild tachycardia Verified 01/18/25 13:08 tramadol Allergy Intermediate Hives Uncoded 12/03/24 13:21 Review of Systems Review of Systems: All systems reviewed & are unremarkable except as noted in HPI and below Constitutional: Constitutional: Denies chills, Denies fever(s), Denies headache(s), Denies malaise and Denies weakness Eyes: Eyes: Denies change in vision, Denies eye discharge and Denies irritation ENT: Denies otalgia, Denies headache(s), Denies nasal congestion, Denies nasal discharge, Denies sinus pain and Denies sore throat Cardiovascular: Cardiovascular: Denies chest pain, Denies edema, Denies palpitations and Denies dyspnea Respiratory: Respiratory: Denies cough and Denies dyspnea Gastrointestinal: Gastrointestinal: Denies abdominal pain, Denies diarrhea, Denies nausea and Denies vomiting Genitourinary: Genitourinary: Denies hematuria, Reports nocturia, Reports dysuria, Denies flank pain and Reports urinary urgency Musculoskeletal: Musculoskeletal: Denies back pain and Denies numbness Integumentary/Breasts: Skin/Breast: Denies pruritus and Denies rash Neurologic: Denies headache(s), Denies numbness and Denies weakness Psychiatric: Psychiatric: Reports no additional psychiatric complaints Endocrine: Endocrine: Denies palpitations PMFSH Past Medical History Medical History Tobacco use Surgical History Surgical History Hx of appendectomy Hx of hernia repair Hx of cholecystectomy History of total hysterectomy Family History Family History Mother Family history of chronic obstructive pulmonary disease Family history of congestive heart failure Other Family history of allergic disorder Family history of cardiovascular disease Hypertension Social History Social History Smoking packs per day: 0.5 Smoking cigarettes per day: 10.0 Years smoked: 40 Smoking pack-years: 20.00 Smoking status: Current every day smoker Tobacco type: cigarettes Second hand tobacco smoke exposure: No Alcohol intake: never Substance use: never Substance use type: does not use Living arrangements: with family Occupation/Education: retired Gender identity (if verbalized by the patient): Female Sexual Orientation (if Verbalized by the Patient): Straight or Heterosexual Spiritual care concerns: No Agree to blood products: Yes Comments At time of signature, agree with nursing past medical, surgical, social and family history. There is no relevant family history pertinent to the presenting complaint. Exam Const: General: cooperative, healthy appearing, comfortable, no acute distress and well nourished Nutritional Appearance: well nourished Orientation/consciousness: patient oriented x3 HENMT: Head: normocephalic and atraumatic Ears: external ears normal Face/Nose/Sinus: Normal external nose present, Normal nares present and normal facial exam Face and sinus: normal facial exam Eyes: General: appearance normal, both eyes and all related structures Pupils: Equal, round and reactive pupils present EOM: EOMs intact bilaterally Neck: Neck: normal visual inspection, full ROM and supple Chest: Chest palpation & inspection: normal inspection of the chest Resp: Effort & Inspection: normal respiratory effort and able to speak in complete sentences Cardio: Rate: regular rate Rhythm: regular rhythm GI: Inspection: normal to inspection GI Palp: No abdominal tenderness and Yes Soft to palpation : General: Yes no CVA tenderness Back/Spine/Pelvis: Back: no CVA tenderness Skin: General skin exam: normal color and no rashes or lesions noted Neuro: General: patient oriented x3 and moves all extremities Cranial nerves: Yes Equal, round and reactive pupils present Extrem: General: normal to inspection and full ROM Psych: Appearance: grossly normal and well kempt Course Course Emergency Course: Patient is aware of diagnosis, understands and agrees to treatment plan. Anticipatory guidance given. Patient agrees to follow-up as directed and is aware of reasons to seek care at the emergency department. Portions of this record may have been created with voice recognition software Level of Care: Express Care Visit Vital Signs Vital signs: Vital Signs Temperature 36.6 C 01/18/25 13:06 Pulse Rate 113 H 01/18/25 13:06 Respiratory Rate 20 01/18/25 13:06 Blood Pressure 186/95 H 01/18/25 13:06 Pulse Oximetry 99 01/18/25 13:06 Oxygen Delivery Room Air 01/18/25 13:06 Temperature 36.6 C 01/18/25 13:06 Pulse Rate 113 H 01/18/25 13:06 Respiratory Rate 20 01/18/25 13:06 Blood Pressure 186/95 H 01/18/25 13:06 Pulse Oximetry 99 01/18/25 13:06 Oxygen Delivery Room Air 01/18/25 13:06 Reviewed MDM - Female Genitourinary MDM Narrative Medical decision making narrative: Exam findings and UA show probable UTI; patient is non-toxic appearing and is in no distress. No CMT, adnexal tenderness, or evidence of pelvic etiology. Patient is appropriate for outpatient treatment and follow-up. Differential Diagnosis Differential diagnosis: Likely urinary tract infection, bacterial vaginosis, trichomoniasis, cervicitis, vaginitis and cystitis Medical Records Attestation: I reviewed the patient's medical records. Lab Data Attestation: I reviewed the patient's lab results. Labs: Lab Results 01/18/25 Range/Units 13:13 POC Urine Color Yellow POC Urine Clarity Cloudy POC Urine pH 6.0 POC Ur Specif [place] 1.020 POC Urine Protein 3+ (Negative) POC Ur Glucose (UA) Negative (Negative) POC Urine Ketones Negative (Negative) POC Urine Blood Trace (Negative) POC Urine Nitrite Negative (Negative) POC Urine Bilirubin Negative (Negative) POC Urine Urobilinogen 0.2 POC U Leukocyte Esteras 1+ (Negative) Discharge Plan Discharge Clinical Impression: Acute UTI Patient Disposition: Home Condition: Stable Instructions: Urinary Tract Infection in Women (ED) Additional Instructions: We will send a urine culture to the lab, based on your symptoms and urine dip we will start treatment today. If culture comes back and bacteria is not susceptible to antibiotic, your prescription may change. Your symptoms should improve within a day of starting antibiotics, but you should finish all the antibiotic pills you get. Otherwise your infection might come back Continue with increased water intake. Take Tylenol or ibuprofen as needed for pain or fever. Follow-up with primary care provider for urine recheck or see ER visit if condition worsens with high fever, nausea, vomiting, severe back pain Patient Language: German Prescriptions: New nitrofurantoin monohyd/m-cryst 100 mg capsule 100 mg PO Q12H 5 Days Qty: 10 0RF Rx Instructions: must administer with a meal/food No Action (DME) Aerochamber MV Spacer See Rx Instructions .Route Qty: 1 0RF Rx Instructions: As directed levalbuterol tartrate [Xopenex HFA] 45 mcg/actuation HFA aerosol inhaler 2 inh inhalation Q6H Qty: 15 0RF loratadine [Claritin] 10 mg tablet 10 mg PO DAILY PRN (Reason: allergy symptoms) fluticasone propionate [Flonase Allergy Relief] 50 mcg/actuation spray,suspension 1 spray intranasal BID PRN (Reason: nasal congestion) Rx Instructions: administer into each nostril diclofenac sodium 75 mg tablet,delayed release (DR/EC) 75 mg PO BID Qty: 180 3RF lisinopril 20 mg tablet 20 mg PO DAILY Qty: 90 2RF Follow-up/Referrals: Garth Lipscomb MD [Primary Care Provider, Family Practice] - 3 Days Time of Disposition: 13:22
[2025-01-18 13:06] VITALS: BP 186/95; PULSE 113; RESP 20; TEMP 36.6; O2SAT 99
[2025-01-18 13:19] LABS: EDUAAPPEAR Cloudy; EDUABILI Negative (Negative); EDUABLOOD Trace (Negative); EDUACOLOR1 Yellow; EDUAGLUCOSE Negative (Negative); EDUAKETONE Negative (Negative); EDUALEUKO 1+ (Negative); EDUANITRATE Negative (Negative); EDUAPH 6.0; EDUAPROTEIN 3+ (Negative); EDUASPGRAVITY 1.020; EDUAUROBILI 0.2
== END 2025-01-18 13:26 | disposition home or self-care (01) ==
PROVIDERS: Emergency Provider Nurse Practitioner Family; PCP Family Medicine Adolescent Medicine
DX: N39.0 Urinary tract infection, site not specified (principal); F17.210 Nicotine dependence, cigarettes, uncomplicated
CPT/HCPCS: 81003; 87086; 87186; 99213; G0463

== ENCOUNTER 2025-01-26 13:44 | Emergency (ER) | payer MEDICARE, BC, SELFPAY ==
--- NOTE | ~2025-01-26 | CT_ITS ---
EXAMINATION: CT abdomen pelvis wo con, 01/26/2025 14:25 CDT HISTORY: jyoti flank pain, uti COMPARISON: No comparisons available. TECHNIQUE: CT scan of the abdomen and pelvis was performed without IV contrast. One or more of the following dose reduction techniques were used: automated exposure control, adjustment of the mA and/or kV according to patient size, use of iterative reconstruction technique. Unless otherwise stated, incidental findings do not require dedicated follow up imaging FINDINGS: CT abdomen: LUNG BASES: The lung bases are clear. The visualized portions of the heart and pericardium are unremarkable. LIVER: Scattered simple and complex appearing probable liver cysts some of which appear partially calcified but too small to characterize. SPLEEN: Unremarkable, no splenomegaly. KIDNEYS: Right Kidney: Unremarkable. No calculi. No hydronephrosis. Left Kidney: Unremarkable. No calculi. No hydronephrosis ADRENAL GLANDS: Unremarkable. PANCREAS: Unremarkable. GALLBLADDER/BILIARY: Post cholecystectomy. STOMACH AND ESOPHAGUS: Stomach is decompressed. BOWEL/MESENTERY: Moderate fecal content, no colitis or diverticulitis. Appendix not identified. Mesentery normal. No thickened or dilated loops of small bowel. ADENOPATHY/RETROPERITONEUM: No lymphadenopathy. AORTA/VASCULATURE: Normal caliber aorta. FREE FLUID OR FREE AIR: No free fluid.. CT pelvis: SOLID ORGANS/REPRODUCTIVE: Post hysterectomy. No adnexal mass. BLADDER: Within normal limits. OSSEOUS STRUCTURES: No acute osseous abnormality.No suspicious lesions. OVERLYING SOFT TISSUES: Postsurgical changes abdominal wall. IMPRESSION: 1. No etiology identified to explain the patient's symptoms. Follow-up suggested if symptoms persist. Reviewed, dictated and finalized at location P. IMPRESSION: 1. No etiology identified to explain the patient's symptoms. Follow-up suggeste d if symptoms persist.
[2025-01-26 13:46] VITALS: BP 187/99; PULSE 111; RESP 16; TEMP 36.4; O2SAT 100
[2025-01-26 14:33] LABS: Add Urine Microscopic? YES; Appearance Urine Clear (Clear); Glucose Urine UA Negative (Negative); Leukocyte Esterase Ur 1+ LEU/UL (Negative); Nitrate Urine Negative (Negative); Non Pathogenic Casts 0-2; Specific Grav Ur 1.014 (1.001-1.035)
[2025-01-26 14:42] LABS: Hematocrit 46.8 % (37.0-47.0); Hemoglobin 15.2 g/dL (12.0-15.0); Immature Granulocyte Percent A 0.2 % (0-0.5); Lymphocytes Absolute Auto 1.29 K/mm3 (0.9-3.2); Mean Corpuscular HGB Conc 32.5 g/dl (32-36); Mean Corpuscular Hemoglobin 31.4 pg (26-34); Mean Corpuscular Volume 96.7 fl (80-100); Nucleated Red Blood Cells Absolute Auto 0.000 K/mm3 (0.0-0.012); Nucleated Red Blood Cells Perc 0.0 % (0.0-0.2); Platelet Count Result 125 k/mm3 (150-375); Red Blood Count 4.84 M/mm3 (4.2-5.4); White Blood Count 5.1 K/mm3 (4.5-10.0)
[2025-01-26 14:47] LABS: Alanine Aminotransferase 31 U/L (6-35); Albumin Level 4.6 g/dL (3.5-5.1); Alkaline Phosphatase 75 U/L (38-126); Anion Gap 39 mmol/L (4-12); Aspartate Amino Transferase 36 U/L (14-36); Bilirubin,Total 0.8 mg/dL (0.2-1.3); Blood Urea Nitrogen 15 mg/dL (7-17); Calcium 9.3 mg/dL (8.4-10.2); Carbon Dioxide 29 mmol/L (22-30); Chloride 105 mmol/L (98-107); Estimated CRCL calculation 49 ml/min; Estimated Glomerular Filt Rate > 60; Glucose 103 mg/dL (65-110); Potassium 3.6 mmol/L (3.4-5.0); Sodium 173 mmol/L (137-145); Total Protein 8.1 g/dL (6.3-8.2)
[2025-01-26] MEDS: SODIUM CHLORIDE 0.9% IV 1,000 ML 999 ML IV CONT (15:03)
--- NOTE | 2025-01-26 15:04 | ED.FEMALEGU ---
HPI - Female Genitourinary General Chief complaint: Urogenital-Female Stated complaint: flank pain Time Seen by Provider: 01/26/25 14:00 Source: patient Mode of arrival: ambulatory Limitations: no limitations History of Present Illness HPI Narrative: Patient is a 69-year-old female who presents the ED with report of bilateral flank pain, UTI. Patient reports she was diagnosed with a urinary tract infection last Monday in urgent care. Started on Macrobid. She was notified on Monday that the culture was resistant to Macrobid and switched to ciprofloxacin. She has been taking this as prescribed. Reports dysuria has improved slightly, but she is still having some urinary pressure/urgency. She also reports having bilateral flank pain which has been ongoing since Monday. Takes diclofenac daily, has also been taking Tylenol without much improvement. Denies nausea, vomiting, fevers, hematuria, history of kidney stones. Related Data Home Medications ?Medication ?Instructions ?Recorded ?Confirmed ?Last Taken ?Type fluticasone propionate 50 1 spray intranasal BID PRN nasal 09/03/21 11/14/24 Unknown History mcg/actuation nasal congestion spray,suspension (Flonase Allergy Relief) loratadine 10 mg tablet (Claritin) 10 mg PO DAILY PRN allergy symptoms 09/03/21 11/14/24 Unknown History Allergies Allergy/AdvReac Type Severity Reaction Status Date / Time hydrocodone Allergy Intermediate hives Verified 01/26/25 14:03 aspirin Allergy Unknown hives Verified 01/26/25 14:03 codeine Allergy Unknown shortness Verified 01/26/25 14:03 of breath Penicillins Allergy Unknown hives Verified 01/26/25 14:03 tetracycline Allergy Unknown Swelling Verified 01/26/25 14:03 clindamycin AdvReac Intermediate bloating Verified 01/26/25 14:03 cefdinir AdvReac Mild tachycardia Verified 01/26/25 14:03 tramadol Allergy Intermediate Hives Uncoded 12/03/24 13:21 Review of Systems Review of Systems: All systems reviewed & are unremarkable except as noted in HPI. All systems reviewed & are unremarkable except as noted in HPI and below PMFSH Past Medical History Medical History Tobacco use Surgical History Surgical History Hx of appendectomy Hx of hernia repair Hx of cholecystectomy History of total hysterectomy Family History Family History Mother Family history of chronic obstructive pulmonary disease Family history of congestive heart failure Other Family history of allergic disorder Family history of cardiovascular disease Hypertension Social History Social History Smoking packs per day: 0.5 Smoking cigarettes per day: 10.0 Years smoked: 40 Smoking pack-years: 20.00 Smoking status: Current every day smoker Tobacco type: cigarettes Second hand tobacco smoke exposure: No Alcohol intake: never Substance use: never Substance use type: does not use Living arrangements: with family Occupation/Education: retired Gender identity (if verbalized by the patient): Female Sexual Orientation (if Verbalized by the Patient): Straight or Heterosexual Spiritual care concerns: No Agree to blood products: Yes Exam Narrative: GENERAL: Elderly, thin, non-toxic, in no acute distress. HEAD: Normocephalic, atraumatic. RESPIRATORY: Airway patent, respirations nonlabored. Clear to auscultation bilaterally, no rales, rhonchi, wheezing. CARDIOVASCULAR: Regular rate and rhythm without murmurs, rubs, or gallops. ABDOMINAL: Soft, minimal tenderness in suprapubic region, nondistended. Normoactive BS. No significant CVA tenderness to percussion MUSCULOSKELETAL: Moves all extremities. No gross deformities. SKIN: Warm, dry, normal color. NEURO: A&O X3. Speech clear. Steady gait. No ataxic movements. PSYCHIATRIC: Appropriate mood and affect. Normal interaction. Course Vital Signs Vital signs: Vital Signs Temperature 97.5 F L 01/26/25 13:46 Pulse Rate 111 H 01/26/25 13:46 Respiratory Rate 16 01/26/25 13:46 Blood Pressure 187/99 H 01/26/25 13:46 Pulse Oximetry 100 01/26/25 13:46 Oxygen Delivery Room Air 01/26/25 13:46 Temperature 97.5 F L 01/26/25 13:46 Pulse Rate 94 01/26/25 15:06 Respiratory Rate 20 01/26/25 15:06 Blood Pressure 158/86 H 01/26/25 15:06 Pulse Oximetry 100 01/26/25 15:06 Oxygen Delivery Room Air 01/26/25 13:46 MDM - Female Genitourinary MDM Narrative Medical decision making narrative: Patient presented to ED with UTI, bilateral flank pain. Currently on ciprofloxacin for UTI. Mildly tachycardic upon arrival, but in no acute distress. Fluids were initiated. Heart rate did respond to this. She is afebrile here. Cbc without leukocytosis. Possible mild hemoconcentration with hemoglobin of 15.2. Baseline per records around 14. Initial CMP resulted with hypernatremia of 173. Normal electrolytes. Normal chloride. Anion gap of 39. Kidney function stable, consistent with previous records. Normal total protein and albumin. This was re-checked and was normal - 142. Likely lab error. UA with 6-10 WBC, 1+ leuk esterase. Culture was reviewed. It is sensitive to ciprofloxacin. CT scan of abdomen/pelvis was obtained and unremarkable. No evidence of pyelonephritis. No ureterolithiasis. Does incidentally show moderate fecal content. Discussed lab and imaging findings with patient, overall reassuring w/u. Feel patient safe for d/c home to continue Ciprofloxacin. Will prescribe short course of muscle relaxers for home use for musculoskeletal component. Discussed strict return precautions. Advised close follow-up with PCP. Patient in agreement plan. Feels comfortable going home. Discharged in stable condition. Medical Records Attestation: I reviewed the patient's medical records. Lab Data Attestation: I reviewed the patient's lab results. 01/26/25 14:10 01/26/25 15:04 Labs: Lab Results 01/26/25 01/26/25 Range/Units 14:10 15:04 WBC 5.1 (4.5-10.0) K/mm3 RBC 4.84 (4.2-5.4) M/mm3 Hgb 15.2 H (12.0-15.0) g/dL Hct 46.8 (37.0-47.0) % MCV 96.7 (80-100) fl MCH 31.4 (26-34) pg MCHC 32.5 (32-36) g/dl RDW 13.2 (11.5-14.5) % Plt Count 125 L (150-375) k/mm3 MPV 12.1 H (7.4-10.4) fl Immature Gran % (Auto) 0.2 (0-0.5) % Neut % (Auto) 63.5 (45.5-73.1) % Lymph % (Auto) 25.3 (18.3-44.2) % [place] % (Auto) 8.2 (2.6-8.5) % Eos % (Auto) 2.4 (0-4.4) % Baso % (Auto) 0.4 (0.2-1.2) % Lymph # (Auto) 1.29 (0.9-3.2) K/mm3 [place] # (Auto) 0.4 (0.1-0.6) K/mm3 Eos # (Auto) 0.1 (0-0.3) K/mm3 Baso # (Auto) 0.0 (0.0-0.1) K/mm3 Abs Immat Gran (auto) 0.01 (0.00-0.031) K/mm3 Absolute Neuts (auto) 3.2 (1.3-6.7) K/mm3 Absolute Nucleated RBC 0.000 (0.0-0.012) K/mm3 Nucleated RBC % 0.0 (0.0-0.2) % Sodium 173 H* 142 (137-145) mmol/L Potassium 3.6 3.7 (3.4-5.0) mmol/L Chloride 105 104 (98-107) mmol/L Carbon Dioxide 29 30 (22-30) mmol/L Anion Gap 39 H 8 (4-12) mmol/L BUN 15 14 (7-17) mg/dL Creatinine 0.71 0.71 (0.7-1.0) mg/dL Estim Creat Clear Calc 49 49 ml/min Estimated GFR > 60 > 60 (59 - ) Glucose 103 70 (65-110) mg/dL Calcium 9.3 9.6 (8.4-10.2) mg/dL Total Bilirubin 0.8 0.8 (0.2-1.3) mg/dL AST 36 40 H (14-36) U/L ALT 31 33 (6-35) U/L Alkaline Phosphatase 75 85 (38-126) U/L Total Protein 8.1 9.0 H (6.3-8.2) g/dL Albumin 4.6 5.0 (3.5-5.1) g/dL Urine Color Yellow (Yellow) Urine Appearance Clear (Clear) Urine pH 6.0 (5.0-9.0) Ur Specific [place] 1.014 (1.001-1.035) Urine Protein Trace (Negative) mg/dL Urine Glucose (UA) Negative (Negative) mg/dL Urine Ketones Negative (Negative) mg/dL Ur Blood (Man) Negative (Negative) Urine Nitrate Negative (Negative) Urine Bilirubin Negative (Negative) Urine Urobilinogen 0.2 (<2.0) mg/dL Leukocyte Esterase Rfl 1+ H (Negative) CLARENCE/UL Urine RBC 0-2 (0-2) /hpf Urine WBC 6-10 H (0-3) /hpf Ur Squamous Epith Cells Occasional (Few) /hpf Urine Bacteria None seen /hpf Urine Casts 0-2 Imaging Data Attestation: I personally reviewed and interpreted this imaging study as follows: Radiologist's impression: ITS Impressions Abdomen/Pelvis CT 01/26/25 14:50 IMPRESSION: 1. No etiology identified to explain the patient's symptoms. Follow-up suggested if symptoms persist. Discharge Plan Discharge Clinical Impression: UTI (urinary tract infection) Qualifiers: Urinary tract infection type: acute cystitis Hematuria presence: without hematuria Qualified Code(s): N30.00 - Acute cystitis without hematuria Patient Disposition: Home Condition: Stable Instructions: Antibiotic Form, Urinary Tract Infection in Women (ED), Flank Pain (ED) Additional Instructions: Continue Ciprofloxacin as prescribed for your urinary tract infection. Stay well hydrated. Continue Tylenol as needed for pain. Take muscle relaxers as needed and prescribed. Recommend taking these at night as they may cause sedation. Do not drive, operate heavy machinery, drink alcohol while on muscle relaxers as this may cause further sedation. Return to the ED if you experience worsening or severe pain, difficulty urinating, unable to keep down food or drink, persistent fevers, or any other symptoms of concern. Patient Language: Syriac Prescriptions: New cyclobenzaprine 5 mg tablet 5 mg PO TID PRN (Reason: muscle spasm) Qty: 7 0RF No Action (DME) Aerochamber MV Spacer See Rx Instructions .Route Qty: 1 0RF Rx Instructions: As directed nitrofurantoin monohyd/m-cryst 100 mg capsule 100 mg PO Q12H 5 Days Qty: 10 0RF Rx Instructions: must administer with a meal/food ciprofloxacin HCl 500 mg tablet 500 mg PO Q12H Qty: 10 0RF levalbuterol tartrate [Xopenex HFA] 45 mcg/actuation HFA aerosol inhaler 2 inh inhalation Q6H Qty: 15 0RF loratadine [Claritin] 10 mg tablet 10 mg PO DAILY PRN (Reason: allergy symptoms) fluticasone propionate [Flonase Allergy Relief] 50 mcg/actuation spray,suspension 1 spray intranasal BID PRN (Reason: nasal congestion) Rx Instructions: administer into each nostril diclofenac sodium 75 mg tablet,delayed release (DR/EC) 75 mg PO BID Qty: 180 3RF lisinopril 20 mg tablet 20 mg PO DAILY Qty: 90 2RF Follow-up/Referrals: Garth Lipscomb MD [Primary Care Provider, Family Practice] Time of Disposition: 15:48
[2025-01-26 15:06] VITALS: BP 158/86; PULSE 94; RESP 20; O2SAT 100
[2025-01-26 15:27] LABS: Alanine Aminotransferase 33 U/L (6-35); Albumin Level 5.0 g/dL (3.5-5.1); Alkaline Phosphatase 85 U/L (38-126); Anion Gap 8 mmol/L (4-12); Aspartate Amino Transferase 40 U/L (14-36); Bilirubin,Total 0.8 mg/dL (0.2-1.3); Blood Urea Nitrogen 14 mg/dL (7-17); Calcium 9.6 mg/dL (8.4-10.2); Carbon Dioxide 30 mmol/L (22-30); Chloride 104 mmol/L (98-107); Estimated CRCL calculation 49 ml/min; Estimated Glomerular Filt Rate > 60; Glucose 70 mg/dL (65-110); Potassium 3.7 mmol/L (3.4-5.0); Sodium 142 mmol/L (137-145); Total Protein 9.0 g/dL (6.3-8.2)
[2025-01-26 16:18] VITALS: BP 170/68; PULSE 72; RESP 18; O2SAT 95
== END 2025-01-26 16:19 | disposition home or self-care (01) ==
PROVIDERS: Emergency Provider Physician Assistant; PCP Family Medicine Adolescent Medicine
DX: N30.00 Acute cystitis without hematuria (principal); F17.210 Nicotine dependence, cigarettes, uncomplicated
CPT/HCPCS: 36415; 74176; 80053; 81001; 85025; 87086; 96360; 99284; J7030